=== PATIENT | female | born 1985 | race Caucasian/White ===

== ENCOUNTER 2016-11-25 00:33 | Emergency (ER) | payer OTHER ==
[~2016-11-25 00:33] MED LIST: IBUPROFEN800 M1 PO; KEFLEX500 M1 PO
--- NOTE | 2016-11-25 00:46 | ED ANKLE/FOOT INJURY COMPLAINT ---
History of Present Illness General Chief Complaint: Foot or Ankle Injury Stated Complaint: ? FX RT ANKLE S/P FALL Source: patient, family Exam Limitations: no limitations Vital Signs & Intake/Output Vital Signs & Intake/Output Vital Signs Date Time Temp Pulse Resp B/P B/P Pulse O2 O2 Flow FiO2 Mean Ox Delivery Rate 11/25 0048 98.3 103 18 126/56 96 Room Air Allergies Coded Allergies: Penicillins (PT UNSURE, ON AMOXICILLIN PRESENTLY WITH NO DIFFICULTIES 11/30/15) nitrofurantoin (N/V 11/30/15) Reconcile Medications No Known Home Medications Triage Nurses Notes Reviewed? yes : No Patient currently breastfeeds: No HPI: Patient was walking in the grass when she accidentally stepped in a hole and twisted her right ankle. Patient denies falling to the ground and there was no head injury. No loss of consciousness. Patient denies any neck pain. Patient is complaining of 8 out of 10 throbbing pain to her right ankle increased with movement. There is no radiation. Past History Travel History Traveled to [place] past 21 day No Medical History Any Pertinent Medical History? 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 No Review of Systems Review of Systems Constitutional: Reports: no symptoms. Respiratory: Reports: no symptoms. Cardiovascular: Reports: no symptoms. Musculoskeletal: Reports: see HPI, joint pain, joint swelling. Neurological/Psychological: Reports: no symptoms. Immunologic/Allergic: Reports: no symptoms. Physical Exam Physical Exam General Appearance: well developed/nourished, alert, awake, anxious, mild distress Head: atraumatic Eyes: Bilateral: PERRL, EOMI. Neck: normal inspection, supple, no midline tenderness Cardiovascular/Respiratory: normal breath sounds, normal peripheral pulses, regular rate/rhythm, no respiratory distress Leg/Knee/Thigh Left: normal range of motion, normal inspection Leg/Knee/Thigh Right: normal range of motion, normal inspection Ankle Right: ecchymosis, evidence of injury, soft tissue tenderness, swelling Foot Right: normal inspection, normal range of motion Neuro/Vascular: normal motor function, normal sensation Tendon: normal tendon function Psychiatric: awake, alert, oriented x 3 Progress Differential Diagnosis: fracture, dislocation, sprain, contusion Plan of Care: Orders Procedure Date/time Status Durable Medical Equipment 11/25 020 Active Diagnostic Imaging: Viewed by Me: Radiology Read. Discussed w/RAD: Radiology Read. Radiology Impression: PATIENT: SAMANTHA PULIDO PRESENT AGE: 31 PATIENT ACCOUNT NO: [id number] : 83 LOCATION: [facility] ORDERING PHYSICIAN: MAGALY VÁSQUEZ MD SERVICE DATE: 11/25/16 EXAM TYPE: RAD - XRY-ANKLE 3 OR MORE VIEWS R EXAMINATION: XR ANKLE, RIGHT CLINICAL INFORMATION: Rolled ankle COMPARISON: None TECHNIQUE: AP, lateral, and mortise views of the right ankle. FINDINGS: Osseous alignment is anatomic. No acute fracture is seen. Lateral soft tissue swelling is noted. IMPRESSION: Lateral soft tissue swelling. No fracture identified. 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 <Electronically signed in Other Vendor System> SIGNED BY: ADEOLA WYMAN MD 11/25/16157 Departure Departure Disposition: HOME OR SELF CARE Condition: Stable Clinical Impression Primary Impression: Right ankle sprain Referrals: ANJEL POWELL,MARCELINO PARADA MD,CARINA Leyva (PCP/Family) Additional Instructions: USE CRUTCHES RETURN FOR ANY CONCERNS Departure Forms: Customer Survey General Discharge Information Prescriptions: Current Visit Scripts Oxycodone HCl/Acetaminophen (Percocet 5-325 MG Tablet) 1-2 TAB PO Q6P PRN PAIN #20 TAB
[2016-11-25 00:48] VITALS: BP 126/56
--- NOTE | 2016-11-25 01:58 | RADIOLOGY REPORT ---
EXAMINATION: XR ANKLE, RIGHT CLINICAL INFORMATION: Rolled ankle COMPARISON: None TECHNIQUE: AP, lateral, and mortise views of the right ankle. FINDINGS: Osseous alignment is anatomic. No acute fracture is seen. Lateral soft tissue swelling is noted. IMPRESSION: Lateral soft tissue swelling. No fracture identified.
[2016-11-25] MEDS ORDERED: PERCOCET 5-3251 EACH PO (02:05)
== END 2016-11-25 02:15 ==
LOC: ERH 00:33
DX: S93.401A Sprain of unspecified ligament of right ankle, initial encounter (principal); W18.42XA Slipping, tripping and stumbling without falling due to stepping into hole or opening, initial encounter; Y93.01 Activity, walking, marching and hiking; Y92.9 Unspecified place or not applicable
CPT/HCPCS: 73610-RT

== ENCOUNTER 2017-10-11 16:17 | Emergency (ER) | payer OTHER ==
[~2017-10-11] VITALS: Ht 152.4 cm; Wt 63.5 kg
[~2017-10-11 16:17] MED LIST changes: +IBUPROFEN600 M1 PO; +PERCOCET 5-3251 EACH PO
--- NOTE | 2017-10-11 18:30 | ED GI/GU/ABDOMINAL COMPLAINT ---
History of Present Illness General Chief Complaint: Abdominal Pain/Flank Pain Stated Complaint: ABD PAIN, +D, "ORANGE URINE" Source: patient, old records Exam Limitations: no limitations Vital Signs & Intake/Output Vital Signs & Intake/Output Vital Signs Date Time Temp Pulse Resp B/P B/P Pulse O2 O2 Flow FiO2 Mean Ox Delivery Rate 10/118 Room Air 10/11 185 98.3 71 18 130/55 100 Room Air 10/11 1625 97.2 110 20 136/78 97 Room Air Allergies Coded Allergies: doxycycline (Intermediate, VOMITTING 01/20/17) Penicillins (PT UNSURE, ON AMOXICILLIN PRESENTLY WITH NO DIFFICULTIES 01/20/17) nitrofurantoin (N/V 01/20/17) Reconcile Medications Cephalexin (Keflex) 500 MG CAPSULE 1 CAP PO TID INFECTION Ibuprofen 600 MG TABLET 1 TAB PO Q6 PRN PAIN with food Oxycodone HCl/Acetaminophen (Percocet 5-325 MG Tablet) 5 MG-325 MG TABLET 1 TAB PO BID pain Triage Note: PT TO ED C/O RUQ PAIN RADIATING TO BACK X 1 WEEK. HAS BEEN TAKING MOTRIN 1800 MG AT A TIME WITH NO RELIEF. DENIES N/V, C/O DIARRHEA. LOSS OF APPETITE. C/O ORANGE URINE AND FREQUENT BELCHING. DRINKING WATER IN TRIAGE, ADVISED TO REMAIN NPO. PT ALSO EDUCATED ON MOTRIN DOSAGE. Triage Nurses Notes Reviewed? yes LMP (ages 10-50): unknown ? n Is pt currently ? No Onset: Abrupt Duration: week(s): (1), constant Timing: recent history Quality/Severity: aching, moderate, sharpness Severity Numbers: 7 Location: right upper quadrant Radiation: back Activities at Onset: none Modifying Factors: Worsens With: palpation. Associated Symptoms: orange urine, light stools HPI: 32-year-old female presents here for evaluation complaining of worsening right upper quadrant pain that is radiating down the right side of her abdomen for the past 1 week that came on after lifting a keg. The pain radiates to her back is worse with palpation. She's been taking ibuprofen with no improvement. Is 4 out of 10 continuous pain worse after eating better with lying in the position. She had a few old Percocet left over from when she previously sprained her ankle. She was taking this with improvement however ran out. She states she's had similar episodes back in June 2017 she's had light-colored stool and Pierce urine going on intermittently since then. She has not sought care until today. No history of abdominal surgeries. She has an IUD in place. No history of abdominal surgeries no diarrhea no vomiting (Ricky Alvarado) Past History Travel History Traveled to [place] past 21 day No Medical History Any Pertinent Medical History? 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 No (Ricyk Alvarado) Review of Systems Review of Systems Constitutional: Reports: see HPI. Comments Review of systems: See HPI, All other systems negative. Constitutional, no chills no fever, HEENT: no sore throat no congestion, Cardiovascular: No chest pain Skin: no rashes, no change in skin Respiratory: No dyspnea no cough no sputum GI: see hpi : No dysuria No hematuria, Muscle skeletal: No joint pain, no back pain, no neck pain, Neurologic: , no headache Heme/endocrine: No bruising Immunology: No lymphadenopathy (Ricky Alvarado) Physical Exam Physical Exam General Appearance: well developed/nourished, alert, awake Gastrointestinal: tenderness Comments: Well-developed well-nourished person in no acute distress HEENT: Normal EENT exam; PERRL, EOMI, HEAD is atraumatic. moist mucous membranes. Neck: Supple,normal range of motion Back: Nontender, no CVA tenderness. Full range of motion Cardiovascular: Regular rate and rhythms no murmur Respiratory: No respiratory distress. Patient speaking in full complete sentences. Breath sounds clear to auscultation bilaterally: NO W/R/R Abdomen: Soft, right upper quadrant tenderness palpation nondistended, no appreciable organomegaly. Normal bowel sounds. No rebound/guarding, No palp hernia, No ascites. Extremity: No edema, full range of motion of extremities Neuro: Alert oriented x3, motor sensory normal, There were no obvious focal neurologic abnormalities. Skin: No appreciable rash on exposed skin, skin is warm and dry. Psych: Mood and affect is normal, memory and judgment is normal. Core Measures ACS in differential dx? No Sepsis Present: No Sepsis Focused Exam Completed? No (Ricky Alvarado) Progress Differential Diagnosis: appendicitis, biliary colic, bowel obstruction, colon cancer, ectopic , gastritis, hepatitis, hernia, inflamm bowel dis, intrauterine , pancreatitis, perforated viscous, SBO, threatened AB, UTI/pyelo Diagnostic Imaging: Viewed by Me: CT Scan. Discussed w/RAD: CT Scan. Initial ED EKG: none Hand-Off Endorsed To: Horacio Lebron Endorsed Time: 2099 Pending: CT (Ricky Alvarado) Plan of Care: Orders Procedure Date/time Status LIPASE 10/11 1810 Complete COMPREHENSIVE METABOLIC PANEL 10/11 1810 Complete CBC WITHOUT DIFFERENTIAL 10/11 1810 Complete AMYLASE 10/11 181 Complete CULTURE,URINE 10/11 164 Active URINE 10/11 164 Complete URINALYSIS 10/11 164 Complete Laboratory Tests 10/11/17 1820: Anion Gap 15, Estimated GFR > 60, BUN/Creatinine Ratio 10.0, Glucose 82, Calcium 10.2, Total Bilirubin 0.7, AST 22, ALT 24, Alkaline Phosphatase 71, Total Protein 8.0, Albumin 5.1 H, Globulin 2.9, Albumin/Globulin Ratio 1.8, Amylase 69, Lipase 450 H 10/11/17 181: CBC w Diff NO MAN DIFF REQ, RBC 4.84, MCV 95.9, MCH 32.1 H, MCHC 33.5, RDW 13.4 , MPV 9.4, Gran % 75.0, Lymphocytes % 17.4 L, Monocytes % 6.0, Eosinophils % 1.3, Basophils % 0.3, Absolute Granulocytes 8.7 H, Absolute Lymphocytes 2.0, Absolute Monocytes 0.7 H, Absolute Eosinophils 0.2, Absolute Basophils 0 10/11/17 1715: Urinalysis LIGHT H, Urine Color YEL, Urine Clarity CLEAR, Urine pH 6.0, Ur Specific [place] <= 1.005, Urine Protein NEG, Urine Ketones NEG, Urine Nitrite NEG, Urine Bilirubin NEG, Urine Urobilinogen 0.2, Ur Leukocyte Esterase NEG, Ur Microscopic SEDIMENT EXAMINED, Urine RBC 1-3, Urine WBC 1-3 H, Ur Epithelial Cells MOD H, Urine Hemoglobin SMALL H, Urine Glucose NEG, Urine Test NEGATIVE Microbiology 10/11 1714 URINE ROUT: Urine Culture - RECD Labs CAT scan Toradol were ordered from triage on my evaluation patient reports no improvement in symptoms with Toradol morphine IV fluids ordered discussed with her at length the plan of care 10/11/2017 8:17:58 PM patient resting in no acute distress at this time pending CAT scan 10/11/2017 8:48:16 PM PT reports pain is returning morphine IV ordered case discussed with and signed out to MARIBELL Barragan pending CAT scan and repeat evaluation. Patient had no episodes of vomiting in the department PATIENT: SAMANTHA PULIDO PRESENT AGE: 32 PATIENT ACCOUNT NO: [id number] : 83 LOCATION: [facility] ORDERING PHYSICIAN: Horacio REYNA SERVICE DATE: 10/11/17 EXAM TYPE: CAT - CT ABD & PELVIS W IV CONTRAST EXAMINATION: CT ABDOMEN AND PELVIS WITH CONTRAST CLINICAL INFORMATION: Right-sided abdominal pain. Question acute appendicitis versus biliary colic. COMPARISON: CT abdomen and pelvis 08/09/2013. TECHNIQUE: Multidetector volumetric imaging was performed of the abdomen and pelvis following IV administration of 95 mL of Optiray 320 intravenous contrast. Sagittal and coronal reformatted images were obtained on the technologist's workstation. DLP: 258.72 mGy-cm FINDINGS: LUNG BASES: Lung bases are clear. There is no pleural or pericardial effusion. LIVER, GALLBLADDER, AND BILIARY TREE: Liver attenuation is homogeneous and there is no evidence of a discrete hepatic parenchymal mass. Grossly no intrahepatic or extrahepatic biliary ductal dilatation. The gallbladder is unremarkable with no evidence of radiopaque gallstones, gallbladder wall thickening, or obvious pericholecystic inflammatory changes. PANCREAS: Unremarkable. SPLEEN: Unremarkable. ADRENAL GLANDS: Unremarkable. KIDNEYS AND URETERS: Kidneys demonstrate symmetric nephrographic enhancement characteristics. There is no discrete renal parenchymal mass. No abnormal perinephric inflammation or collection. There is no hydronephrosis. No worrisome mass or calcifications visualized along the expected course of the right or left ureters. BLADDER: Unremarkable. GASTROINTESTINAL TRACT: The stomach and small bowel is unremarkable. No evidence of small bowel obstruction. No free intraperitoneal air or fluid. Normal retrocecal appendix. ABDOMINAL WALL: No significant hernia is appreciated. LYMPH NODES: No pathologically enlarged mesenteric or retroperitoneal lymph nodes. VASCULAR: The abdominal aorta and iliac vessels are unremarkable. The inferior vena cava is unremarkable. PELVIC VISCERA: There is an intrauterine device located within the endometrial cavity of a retroverted uterus. No worrisome adnexal mass. OSSEOUS STRUCTURES: There is no acute osseous finding. No worrisome lytic or blastic osseous lesion. IMPRESSION: Normal CT scan of the abdomen and pelvis. No discrete finding to provide a definitive explanation for the patient's abdominal pain. 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 <Electronically signed in Other Vendor System> SIGNED BY: Saleem Arteaga MD 10/11 (Ricky Alvarado) (Horacio Lebron) Departure Departure Condition: Stable Departure Forms: Customer Survey General Discharge Information (Ricky Alvarado) Departure Disposition: HOME OR SELF CARE Clinical Impression Primary Impression: Right upper quadrant abdominal pain Referrals: Ward POWELL,Risa Leyva (PCP/Family) Additional Instructions: Follow-up for outpatient ultrasound. Follow-up with sales account associate provided. Take Percocet for pain. Please go over all results of today's visit with your primary care doctor. Contact your primary care doctor to let them know you were here in the emergency room. There may be nonspecific findings which may not be related to your visit today here in the emergency room but may require further evaluation and chronic monitoring by your primary care doctor. If you had a laceration today the chance of foreign body always remains. You should follow-up with your primary care doctor for recheck in 3-5 days for a wound check. If you had an x-ray done there is a chance that a fracture could have been missed on initial read and you should follow-up with your primary care doctor for repeat x-rays if symptoms persist. If your blood pressure was elevated here in the emergency room please have rechecked by [facility] primary care doctor within the next 48. If you were prescribed a narcotic here in the emergency room or any type of controlled substances you're not allowed to drive while taking this medication or operate any type of heavy machinery. Narcotics can make you feel lightheaded dizziness nausea and can cause constipation. You may need to parts picker a stool softener. Thank you for choosing [facility] emergency room. Please return to the emergency room immediately if you have any other concerns worsening of symptoms. Prescriptions: Current Visit Scripts Oxycodone HCl/Acetaminophen (Percocet 5-325 MG Tablet) 1 TAB PO BID #10 TAB (Horacio Lebron) PA/TARPER Co-Sign Statement Statement: ED Attending supervision documentation- [] I saw and evaluated the patient. I have also reviewed all the pertinent lab results and diagnostic results. I agree with the findings and the plan of care as documented in the PA's/TARPER's documentation. [X] I have reviewed the ED Record and agree with the PA's/TARPER's documentation. [] Additions or exceptions (if any) to the PAs/TARPER's note and plan are summarized below: [] (Govind POWELL,Chencho Pepe)
[2017-10-11 18:51] LABS: ABSOLUTE BASOPHIL COUNT 0 /CUMM (0.0-0.2); ABSOLUTE EOSINOPHIL COUNT 0.2 /CUMM (0.0-0.7); ABSOLUTE GRANULOCYTE CT 8.7 /CUMM (1.4-6.5); ABSOLUTE MONOCYTE COUNT 0.7 /CUMM (0.10-0.60); BASOPHIL % 0.3 % (0.0-2.0); EOSINOPHIL % 1.3 % (0-5); HEMATOCRIT 46.4 % (37-47); MEAN CORPUSCULAR HGB 32.1 PG (27.0-31.0); MEAN CORPUSCULAR HGB CONC 33.5 G/DL (33.0-37.0); MEAN CORPUSCULAR VOLUME 95.9 FL (81.0-99.0); MEAN PLATELET VOLUME 9.4 FL (7.4-10.4); PLATELET COUNT 274 /CUMM (130-400); RBC DISTRIBUTION WIDTH 13.4 % (11.5-14.5); RED BLOOD CELL CT 4.84 /CUMM (4.20-5.40); WHITE BLOOD CELL COUNT 11.5 /CUMM (4.8-10.8)
[2017-10-11 18:58] VITALS: BP 130/55
--- NOTE | 2017-10-11 21:15 | CT SCAN REPORT ---
EXAMINATION: CT ABDOMEN AND PELVIS WITH CONTRAST CLINICAL INFORMATION: Right-sided abdominal pain. Question acute appendicitis versus biliary colic. COMPARISON: CT abdomen and pelvis 08/09/2013. TECHNIQUE: Multidetector volumetric imaging was performed of the abdomen and pelvis following IV administration of 95 mL of Optiray 320 intravenous contrast. Sagittal and coronal reformatted images were obtained on the technologist's workstation. DLP: 258.72 mGy-cm FINDINGS: LUNG BASES: Lung bases are clear. There is no pleural or pericardial effusion. LIVER, GALLBLADDER, AND BILIARY TREE: Liver attenuation is homogeneous and there is no evidence of a discrete hepatic parenchymal mass. Grossly no intrahepatic or extrahepatic biliary ductal dilatation. The gallbladder is unremarkable with no evidence of radiopaque gallstones, gallbladder wall thickening, or obvious pericholecystic inflammatory changes. PANCREAS: Unremarkable. SPLEEN: Unremarkable. ADRENAL GLANDS: Unremarkable. KIDNEYS AND URETERS: Kidneys demonstrate symmetric nephrographic enhancement characteristics. There is no discrete renal parenchymal mass. No abnormal perinephric inflammation or collection. There is no hydronephrosis. No worrisome mass or calcifications visualized along the expected course of the right or left ureters. BLADDER: Unremarkable. GASTROINTESTINAL TRACT: The stomach and small bowel is unremarkable. No evidence of small bowel obstruction. No free intraperitoneal air or fluid. Normal retrocecal appendix. ABDOMINAL WALL: No significant hernia is appreciated. LYMPH NODES: No pathologically enlarged mesenteric or retroperitoneal lymph nodes. VASCULAR: The abdominal aorta and iliac vessels are unremarkable. The inferior vena cava is unremarkable. PELVIC VISCERA: There is an intrauterine device located within the endometrial cavity of a retroverted uterus. No worrisome adnexal mass. OSSEOUS STRUCTURES: There is no acute osseous finding. No worrisome lytic or blastic osseous lesion. IMPRESSION: Normal CT scan of the abdomen and pelvis. No discrete finding to provide a definitive explanation for the patient's abdominal pain.
[2017-10-11] MEDS ORDERED: PERCOCET 5-3251 EACH PO (21:44)
== END 2017-10-11 21:54 ==
LOC: ERH 16:17
PROVIDERS: Physician Assistant Medical
DX: R10.11 Right upper quadrant pain (principal)
CPT/HCPCS: 74177; 81001; 81025; 87086; 96361; 96374; 96375; 96376; J1885